=== PATIENT | female | born 1990 | race Two or more races ===

== ENCOUNTER 2023-03-05 04:10 | Emergency (ER) | payer OTHER ==
[~2023-03-05] VITALS: Ht 160 cm; Wt 59.0 kg
[2023-03-05] MEDS ORDERED: IV NS 0.9% 1,000 ML BAG IV ONE (04:30)
[2023-03-05] MEDS ORDERED: ONDANSETRON HCL/PF 4 MG/2 ML VIAL IVP ONE (04:30)
--- NOTE | 2023-03-05 04:30 | NUR ---
[employer] FRIEND FOR C/O N/V/D SINCE 2099
--- NOTE | 2023-03-05 04:35 | NUR ---
20GA LEFT AC ESTABLISHED
--- NOTE | 2023-03-05 04:36 | NUR ---
BLOOD WORK COLLECTED AND SENT TO LAB
[2023-03-05] MEDS ORDERED: ONDANSETRON HCL/PF 4 MG/2 ML VIAL ONE (04:40)
[2023-03-05] MEDS ORDERED: DICYCLOMINE HCL INJ 20 MG/2 ML AMPUL IM ONE ×2 (04:48→05:00)
[2023-03-05 05:03] LABS: BASOPHILS % (AUTO) 0.3 % (0.0-2.0); EOSINOPHILS % (AUTO) 0.2 % (0.0-6.0); HEMATOCRIT 41 % (33-45); HEMOGLOBIN 13.7 g/dL (11.5-14.8); LYMPHOCYTES # (AUTO) 1.7 K/uL (0.8-4.8); LYMPHOCYTES % (AUTO) 14.5 % (20.0-44.0); MEAN CORPUSCULAR HGB CONC 34 g/dl (31.0-36.0); MEAN CORPUSCULAR VOLUME 91 fL (82-100); MONOCYTES # (AUTO) 0.3 K/uL (0.1-1.30); MONOCYTES % (AUTO) 2.9 % (2.0-12.0); NEUTROPHILS # (AUTO) 9.7 K/uL (1.8-8.9); NEUTROPHILS % (AUTO) 82.1 % (43.0-81.0); PLATELET COUNT (AUTO) 226 K/uL (150-450); RED BLOOD CELL COUNT(AUTO) 4.46 MIL/uL (4.0-5.2); WHITE BLOOD COUNT (AUTO) 11.7 K/uL (4.3-11.0)
[2023-03-05 05:17] LABS: CALCIUM, SERUM 9.5 mg/dL (8.5-10.1); CREATININE 0.8 mg/dL (0.6-1.3); POTASSIUM 3.7 mmol/L (3.5-5.1)
[2023-03-05 05:23] LABS: ALBUMIN 4.1 g/dL (3.4-5.0); BILIRUBIN,DIRECT 0.1 mg/dL (0.0-0.2); BILIRUBIN,TOTAL 0.6 mg/dL (0.2-1.0)
--- NOTE | 2023-03-05 05:37 | NUR ---
URINE COLLECTED AND SENT TO LAB
[2023-03-05] MEDS ORDERED: KETOROLAC TROMETHAMINE INJ 30 MG/ML VIAL ONE (06:45)
[2023-03-05 06:46] LABS: BILIRUBIN,URINE NEGATIVE (NEGATIVE); COLOR,URINE YELLOW (YELLOW); LEUKOCYTE ESTERASE ,URINE NEGATIVE (NEGATIVE); NITRITE, URINE NEGATIVE (NEGATIVE); PH,URINE 8.5 (5.0-8.0); PROTEIN,URINE TRACE mg/dl (NEGATIVE); UGLUCOSE NEGATIVE (NEGATIVE); UROBILINOGEN,URINE 0.2 EU/dL (0.2)
[2023-03-05] MEDS ORDERED: KETOROLAC TROMETHAMINE INJ 30 MG/ML VIAL IV ONE (07:00)
--- NOTE | 2023-03-05 07:20 | NUR ---
RECEIVED PT FROM VERÓNICA SMITH PT AWAKE AND ALERT
--- NOTE | 2023-03-05 07:40 | NUR ---
PAtient AOX4 able to express her concerns. Patient is in bed, states she is feeling bertter. No nausea or vomiting. Discussed plan of care, pt verbalized agreement. All safety precautions taken.
[2023-03-05 07:43] LABS: BACTERIA,URINE Rare /HPF (None Seen); RBC,URINE 0-2 /HPF (0-2); SQUAMOUS EPITHELIAL CELL,UR Few /HPF (None Seen); URINE AMORPHOUS PHOSPHATES Many /HPF (None Seen); WBC,URINE 0-2 /HPF (0-3)
--- NOTE | 2023-03-05 07:55 | NUR ---
AT BED SIDE SPOOKING WITH PT
[2023-03-05] MEDS ORDERED: IV NS 0.9% 1,000 ML IV ONE (08:00)
[2023-03-05] MEDS ORDERED: PROCHLORPERAZINE EDISYLATE 10 MG/2 ML VIAL IVP ONE (08:00)
[2023-03-05] MEDS ORDERED: diphenhydrAMINE HCL 50 MG/ML VIAL IV ONE (08:00)
[2023-03-05] MEDS ORDERED: PROCHLORPERAZINE EDISYLATE 10 MG/2 ML VIAL ONE (08:02)
[2023-03-05] MEDS ORDERED: diphenhydrAMINE HCL 50 MG/ML VIAL ONE (08:02)
[2023-03-05] MEDS ORDERED: DIPH50CA4 PO (10:28)
[2023-03-05] MEDS ORDERED: NAPR-1164 PO (10:28)
[2023-03-05 10:46] VITALS: BP 100/64
--- NOTE | 2023-03-05 10:47 | NUR ---
Patient discharged to home in stable condition. Written and verbal after care instructions given. Patient verbalizes understanding of instruction. NO obvious distress Stable
== END 2023-03-05 10:47 | disposition home or self-care (01) ==
LOC: ER 04:12
DX: K52.9 Noninfective gastroenteritis and colitis, unspecified (principal)
CPT/HCPCS: 99285; 96374; 96361; 96375; 85025; 80048; 83690; 80076; 84703; 36415; 80307; 96372; 81001; J0780; J1200; J1885; J2405; J7030; J0500